=== PATIENT | female | born 1965 | race Caucasian/White ===

== ENCOUNTER 2017-08-01 22:25 | Emergency (ER) | payer MEDICAID ==
[~2017-08-01] VITALS: Ht 170.2 cm; Wt 114.8 kg
[~2017-08-01 22:25] MED LIST: ALBUTEROL2.5 MG/31 INH; ASPIRIN325; CEFUROXIME250 MG PO; CYMBALTA60 MG PO; FLEXERIL; GABAPENTIN 100100 MG; IRON325 PO; LEVAQUIN 500 M500 MG PO; LYRICA 75 MG CA75 MG PO; MELATONIN3 MG PO; METFORMIN HCL500 MG PO; MOBIC15 MG PO; NASONEX17 GM NASAL; NORTRIPTYLINE H25 M3 GT; PAXIL10 MG PO; PREDNISONE 10 M10 M1 PO; PREDNISONE 20 M20 M1 PO; PULMICORT0.5 MG/22; RHINOCORT AQUA8.6 GM NS; SINGULAIR 10 MG10 M1 PO; TESSALON PERLE100 MG PO; TUSSIN COU15 MG/5 M1 PO; VENTOLIN HFA 1818 GM; VISTARIL 25 MG25 M1 PO; XANAX 0.25 MG0.25 MG PO
[2017-08-01 23:26] LABS: ABSOLUTE EOSINOPHILS 0.1 thou/uL (0.0-0.7); ABSOLUTE LYMPHOCYTES 2.8 thou/uL (0.8-5.3); ABSOLUTE MONOCYTES 0.7 thou/uL (0.0-1.2); BASOPHILS 0.3 %; EOSINOPHILS 0.9 %; HEMATOCRIT 31.4 % (37.0-47.0); HEMOGLOBIN 10.1 gm/dL (12.0-15.0); LYMPHOCYTES 29.1 %; MCH 26.8 pg (26.0-34.0); MCHC 32.1 g/dL (28.0-37.0); MCV 83.6 fL (80.0-100.0); MONOCYTES 6.9 %; MPV 8.2 fl. (7.2-11.1); NUCLEATED RBCS 0 /100WBC; PLATELET COUNT* 282 thou/uL (150-400); POLYS 62.8 %; RBC 3.75 mil/uL (4.20-5.00); RDW-CV 16.4 % (10.5-14.5); WBC 9.6 thou/uL (4.0-11.0)
[2017-08-01 23:41] LABS: CALCIUM 8.3 mg/dL (8.5-10.1); POTASSIUM 3.4 mmol/L (3.5-5.1)
[2017-08-01 23:47] LABS: URINE BILIRUBIN 1+ (Negative); URINE BLOOD NEGATIVE (Negative); URINE CLARITY CLOUDY; URINE COLOR YELLOW; URINE GLUCOSE-RANDOM NEGATIVE (Negative); URINE KETONES NEGATIVE (Negative); URINE LEUKOCYTES-REFLEX NEGATIVE (Negative); URINE NITRITE-REFLEX NEGATIVE (Negative); URINE PROTEIN 1+ (Negative); URINE SPECIFIC GRAVITY >= 1.030 (1.005-1.030); URINE UROBILINOGEN 0.2 E.U./dl (0.2-1.0)
[2017-08-02 00:02] LABS: ICTOTEST (BILI CONFIRMATORY) Negative (Negative)
[2017-08-02 00:03] LABS: CASTS None Seen /LPF (None Seen); MUCUS 0-3 Light strn/LPF (None Seen); SQUAMOUS >10 Many /LPF (0-3)
[2017-08-02 00:04] LABS: BACTERIA-REFLEX >30 Many /HPF (None Seen); URINE RBC 0-2 Rare /HPF (0-2); URINE WBC-REFLEX 0-5 Rare /HPF (0-5)
[2017-08-02 00:05] LABS: CRYSTALS None Seen /LPF (None Seen)
[2017-08-02 00:09] LABS: AMP/METHAMP Negative (Negative); BARBITURATES Negative (Negative); BENZODIAZEPINES Negative (Negative); COCAINE Negative (Negative); METHADONE Negative (Negative); OPIATES Negative (Negative); PCP Negative (Negative); THC Negative (Negative)
[2017-08-02] MEDS ORDERED: ANTIVERT25 MG PO (00:24)
[2017-08-02 00:55] VITALS: BP 111/81
--- NOTE | 2017-08-02 09:59 | EKG ---
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: BRITTNEY : 1965 Requested By: Radha Giang Order Number: [id number] MD: Maulik Lopez Measurements Intervals [place] Rate: 76 P: 22 MI: 173 QRS: 13 QRSD: 101 T: 3 QT: 423 QTc: 476 Interpretive Statements Sinus rhythm Low voltage, precordial leads Borderline T wave abnormalities Borderline prolonged QT interval Compared to ECG 12/02/2016 20:52:59 T-wave abnormality now present Electronically Signed On 08-02-2017 9:59:36 CDT by Maulik Lopez [email or web address] <ELECTRONICALLY SIGNED> By: Maulik Lopez MD, [facility] 08/02/17 [id number] Maulik Lopez MD, [facility] /EPI
== END 2017-08-02 00:57 | disposition still patient (30) ==
LOC: M.ERS 22:25
PROVIDERS: Nurse Practitioner
DX: R42 Dizziness and giddiness (principal); R11.2 Nausea with vomiting, unspecified; J45.909 Unspecified asthma, uncomplicated; Z88.2 Allergy status to sulfonamides

== ENCOUNTER 2019-07-13 18:59 | Emergency (ER) | payer MEDICAID ==
[~2019-07-13] VITALS: Ht 170.2 cm; Wt 113.4 kg
[~2019-07-13 18:59] MED LIST changes: +ANTIVERT25 MG PO
[2019-07-13] MEDS ORDERED: ZOLOFT25 MG PO (19:10)
[2019-07-13] MEDS ORDERED: NORCO 5-325 TA1 EAC1 PO (20:03)
[2019-07-13 20:27] VITALS: BP 126/78
== END 2019-07-13 20:28 | disposition home or self-care (01) ==
LOC: M.ERS 18:59
DX: S82.65XA Nondisplaced fracture of lateral malleolus of left fibula, initial encounter for closed fracture (principal); J45.909 Unspecified asthma, uncomplicated; Z98.51 Tubal ligation status; Z88.2 Allergy status to sulfonamides; W17.2XXA Fall into hole, initial encounter; Y93.89 Activity, other specified; Y92.89 Other specified places as the place of occurrence of the external cause; Y99.8 Other external cause status